=== PATIENT | female | born 1955 | race Caucasian/White ===

== ENCOUNTER → 2020-03-19 | Day surgery (SDC) | payer OTHER ==
[~2020-03-19] MED LIST: Bacitracin Oint 15 GM Tube ONE; Lactated Ringers 1,000 ML IV SCH; Lidocaine 1% 4 ML ONE; Lidocaine 1% with EPINEPHrine 1:100,000 20 ML MDV ONE; Lidocaine 1%/Sod Bicarbonate in NS 8.4% 1 ML Syringe IDERM PRN; Midazolam 1 MG/ML 2 ML SDV ONE; Propofol 200 MG/20 ML SDV ONE; Sodium Chloride 0.9% 10 ML Syringe FLUSH PRN
--- NOTE | 2020-03-19 08:51 | PCM.PREANE ---
Preanesthetic Assessment - Procedure Proposed Procedure: excision of basal cell left cheek with FS - Anesthesia/Transfusion/Family Hx Anesthesia History: Prior Anesthesia Reaction Type of Anesthesia Reaction: Excessive Nausea/Vomiting (with general) Family History of Anesthesia Reaction: No Transfusion History: No Prior Transfusion(s) - Review of Systems General: No Symptoms Pulmonary: No Symptoms Cardiovascular: No Symptoms Gastrointestinal: No Symptoms Neurological: No Symptoms Other: Reports: Diabetes, Depression - Physical Assessment NPO Status Date: 03/18/20 NPO Status Time: 23:45 Vital Signs: Last Vital Signs Temp 98.6 F 03/19/20 08:10 Pulse 69 03/19/20 08:10 Resp 16 03/19/20 08:10 BP 117/70 03/19/20 08:10 Pulse Ox 98 03/19/20 08:10 Height: 5 ft 1 in Weight: 69.4 kg ASA Class: 2 Mental Status: Alert & Oriented x3 Airway Class: Mallampati = 1 Dentition: Reports: Dentures (top and bottom) Thyro-Mental Finger Breadths: 3 Mouth Opening Finger Breadths: 3 ROM/Head Extension: Full Lungs: Clear to Auscultation, Normal Respiratory Effort Cardiovascular: Regular Rate, Regular Rhythm - Lab Values: Laboratory Last Values SARS Virus RNA (PCR) Negative (NEGATIVE) 03/19/20 07:02 FBS 111 at 0852 - Imaging/EKG Impressions: ekg 03/19/20 SR 72 bpm - Allergies Allergies/Adverse Reactions: Allergies Allergy/AdvReac Type Severity Reaction Status Date / Time shellfish derived Allergy unknown Verified 03/18/20 12:16 - Blood Blood Available: No - Acknowledgements Anesthesia Type Planned: MAC Pt an Appropriate Candidate for the Planned Anesthesia: Yes Alternatives and Risks of Anesthesia Discussed w Pt/Guardian: Yes Pt/Guardian Understands and Agrees with Anesthesia Plan: Yes PreAnesthesia Questionnaire Cardiovascular History: Reports: High Cholesterol, Hypertension Respiratory History: Reports: Asthma Gastrointestinal History: Reports: Hemorrhoids, Irritable Bowel Syndrome APPLICATIONS CHEMIST History: Reports: Psychiatric History: Reports: Depression Endocrine/Metabolic History: Reports: Diabetes, Type II Oncologic (Cancer) History: Reports: Basal Cell Carcinoma - Past Surgical History HEENT Surgical History: Reports: Tonsillectomy GI Surgical History: Reports: Appendectomy, Colonoscopy Female Surgical History: Reports: Section, Hysterectomy, Salpingo- Oophorectomy Neurological Surgical History: Reports: Spinal Fusion Musculoskeletal Surgical History: Reports: Other (See Below) Other Musculoskeletal Surgeries/Procedures:: hand surgery - SUBSTANCE USE Smoking Status *Q: Former Smoker Tobacco Use Within Last Twelve Months: No Second Hand Smoke Exposure: No Days Per Week of Alcohol Use: 2 Number of Drinks Per Day: 5 Total Drinks Per Week: 10 Recreational Drug Use History: No - HOME MEDS Home Medications: Home Meds Albuterol [Proair HFA] 8.5 gm IH ASDIRECTED PRN 03/18/20 [History] Cartilage/Collagen/Bor/Hyalur [Joint Health Tablet] 1 tab PO DAILY 03/18/20 [History] Cyanocobalamin (Vitamin B12) [Vitamin B12] 1,000 mcg PO DAILY 03/18/20 [History] Ibuprofen [Motrin] 800 mg PO DAILY 03/18/20 [History] Omeprazole Magnesium [Prilosec Otc] 20 mg PO DAILY 03/18/20 [History] PARoxetine HCl [Paxil] 20 meq PO DAILY 03/18/20 [History] Potassium Chloride 10 meq PO DAILY 03/18/20 [History] Rosuvastatin [Crestor] 10 mg PO DAILY 03/18/20 [History] hydroCHLOROthiazide [Hydrochlorothiazide] 12.5 mg PO DAILY 03/18/20 [History] lisinopriL [Lisinopril] 40 mg PO DAILY 03/18/20 [History] metFORMIN [Glucophage XR] 500 mg PO DAILY 03/18/20 [History] - CURRENT (IN HOUSE) MEDS Current Meds: Current Medications Lactated Ringer's (Ringers, Lactated) 1,000 mls @ 125 mls/hr IV ASDIRECTED SOHA Stop: 03/19/20 23:00 Lidocaine/Sodium Bicarbonate (Buffered Lidocaine 1% In Ns 8.4%) 0.25 ml IDERM ONETIME PRN PRN Reason: Prior to IV Start Stop: 03/19/20 18:00 Sodium Chloride (Saline Flush) 10 ml FLUSH ASDIRECTED PRN PRN Reason: Keep Vein Open Stop: 03/19/20 18:00
--- NOTE | 2020-03-19 10:13 | PCM.OPNOTE ---
- General Post-Op/Procedure Note Date of Surgery/Procedure: 03/19/20 Operative Procedure(s): excsion of basal cell cancer of the left cheek with layered closure under forzen section control Pre Op Diagnosis: basal lana of the left cheek Post-Op Diagnosis: Same Anesthesia Technique: MAC Primary Surgeon: Johnny Davenport EBL in mLs: 10 Complications: None Condition: Good
--- NOTE | 2020-03-19 10:15 | PCM48HPAN ---
Post Anesthesia Note - EVALUATION WITHIN 48HRS OF ANESTHETIC Vital Signs in Normal Range: Yes Patient Participated in Evaluation: Yes Respiratory Function Stable: Yes Airway Patent: Yes Cardiovascular Function Stable: Yes Hydration Status Stable: Yes Pain Control Satisfactory: Yes Nausea and Vomiting Control Satisfactory: Yes Mental Status Recovered: Yes Vital Signs: Last Vital Signs Temp 98.6 F 03/19/20 08:10 Pulse 69 03/19/20 08:10 Resp 16 03/19/20 08:10 BP 117/70 03/19/20 08:10 Pulse Ox 98 03/19/20 08:10 1011 86 16 97.1 105/57 97%
--- NOTE | 2020-03-19 14:04 | OR ---
DATE OF OPERATION: 03/19/2020 SURGEON: Johnny Davenport MD OPERATION PERFORMED: Excision of basal cell of the left cheek with layered closure under frozen section control. ANESTHESIA: Local anesthetic, 1% xylocaine with epinephrine, and IV sedation. ESTIMATED BLOOD LOSS: 10 mL. FINDINGS: Margin and lesion of the basal cell, 2 cm. DESCRIPTION OF PROCEDURE: The patient was taken to the operating room, placed in a supine position, connected to monitoring equipment, and given IV sedation. The site had been previously marked and the area of basal cell was identified in the left cheek near the nasolabial fold. It was prepped with Betadine and draped off in a sterile fashion. Proposed incision lines were marked with a marking pen, measured and then the area was anesthetized with 1% Xylocaine. An elliptical incision was made in a curvilinear fashion to conform with Renard's lines and the medial margin was marked with a black suture. It was sent for frozen section, where the margins were noted to be clear. The edges were then widely undermined and brought together with deep sutures of 4-0 Vicryl suture and the skin with interrupted 4-0 Prolene sutures. Sterile dressing was placed. The patient tolerated the procedure and was sent to recovery room in a stable condition. PREOPERATIVE DIAGNOSIS: POSTOPERATIVE DIAGNOSIS: MMODAL /[id number]
== END | disposition home or self-care (01) ==
LOC: JD.SDS 08:08
PROVIDERS: ATTEND Surgery
DX: C44.319 Basal cell carcinoma of skin of other parts of face (principal); E78.00 Pure hypercholesterolemia, unspecified; I10 Essential (primary) hypertension; E11.9 Type 2 diabetes mellitus without complications; F32.9 Major depressive disorder, single episode, unspecified; Z91.013 Allergy to seafood; Z87.891 Personal history of nicotine dependence; Z79.84 Long term (current) use of oral hypoglycemic drugs; Z79.899 Other long term (current) drug therapy
CPT/HCPCS: 11642; 12051; 82962; 87635; 93005; A9270; J2001; J2250; J2704; J7120; 00300; U0002

== ENCOUNTER 2022-05-22 17:06 | Emergency (ER) | payer MEDICARE ==
[2022-05-22] MEDS ORDERED: diphenhydrAMINE 50 MG/ML SDV IVPUSH ONE (20:02)
[2022-05-22] MEDS ORDERED: Lactated Ringers 1,000 ML IV ONE (20:02)
[2022-05-22] MEDS ORDERED: Famotidine 20 MG/2 ML SDV IVPUSH ONE (20:02)
[2022-05-22] MEDS ORDERED: Ondansetron 4 MG/2 ML SDV IVPUSH ONE ×2 (20:02→22:25)
[2022-05-22] MEDS ORDERED: Sucralfate 1 GM Tab PO ONE (22:30)
[2022-05-22] MEDS ORDERED: Lactated Ringers 1,000 ML IV SCH (22:45)
[2022-05-22] MEDS: Potassium Chloride 10 MEQ in Premix Bag 1 BAG IV SCH (23:00)
[2022-05-23] MEDS ORDERED: Acetaminophen 325 MG Tab PO ONE (00:10)
[2022-05-23] MEDS ORDERED: Morphine 2 MG/ML SYRINGE IVPUSH ONE (00:15)
[2022-05-23] MEDS: Potassium Chloride 10 MEQ in Premix Bag 1 BAG IV SCH ×3 (00:21→02:42)
[2022-05-23] MEDS ORDERED: Famotidine 20 MG/2 ML SDV IVPUSH ONE (01:03)
[2022-05-23] MEDS ORDERED: methylPREDNISolone Sodium Succinate 125 MG/2 ML SDV IVPUSH ONE (01:03)
[2022-05-23] MEDS ORDERED: diphenhydrAMINE 50 MG/ML SDV IVPUSH ONE (01:03)
[2022-05-23] MEDS ORDERED: Iopamidol 612 MG/ML 100 ML Bottle IVPUSH ONE (02:10)
== END 2022-05-23 05:39 | disposition home or self-care (01) ==
LOC: JD.ED 17:06
DX: R10.13 Epigastric pain (principal); E87.6 Hypokalemia; J45.909 Unspecified asthma, uncomplicated; E11.9 Type 2 diabetes mellitus without complications; Z91.013 Allergy to seafood; Z79.899 Other long term (current) drug therapy; Z79.84 Long term (current) use of oral hypoglycemic drugs; Z90.49 Acquired absence of other specified parts of digestive tract; Z90.710 Acquired absence of both cervix and uterus
CPT/HCPCS: 36415; 70450; 74177; 80053; 83690; 83735; 84132; 85025; 96361; 96365; 96366; 96375; 96376; 99284; A9270; J1200; J2270; J2405; J2930; J3480; J3490; J7120; Q9967